=== PATIENT | male | born 1940 | race American Indian/Alaskan Native ===

== ENCOUNTER 2020-05-23 19:37 | Emergency (ER) | payer MEDICARE, OTHER ==
[~2020-05-23] VITALS: Ht 170.2 cm; Wt 63.5 kg
== END 2020-05-23 20:57 | disposition home or self-care (01) ==
LOC: ED 19:37
DX: I87.2 Venous insufficiency (chronic) (peripheral) (principal); Z87.891 Personal history of nicotine dependence
CPT/HCPCS: 80048; 83880; 99284

== ENCOUNTER 2021-03-25 12:48 | Inpatient (IN) | payer MEDICARE, OTHER ==
[~2021-03-25] VITALS: Ht 170.2 cm; Wt 65.0 kg
--- NOTE | 2021-03-26 13:34 | EKG ---
[facility] [address] [facility] [place], [place] [address] Signed Sinus tachycardia Left axis deviation T wave abnormality, consider anterior ischemia Abnormal ECG No previous ECGs available Confirmed by ALBERT MONTES DO ([id number]) on 03/26/2021 1:34:16 PM Electronically Signed By: ALBERT MONTES DO 03/26/21 1334 PATIENT NAME: SUSAN TRONCOSO Electrocardiogram DATE OF : 38 PHYSICIAN: ALBERT MONTES DO REPORT #: [id number] REPORT IS CONFIDENTIAL AND NOT TO BE RELEASED WITHOUT AUTHORIZATION
--- NOTE | 2021-04-06 21:03 | EKG ---
[facility] [address] [facility] [place], [place] [address] Signed Sinus tachycardia Left axis deviation Anterolateral infarct , age undetermined Abnormal ECG No previous ECGs available Confirmed by ALBERT MONTES DO ([id number]) on 04/06/2021 9:03:32 PM Electronically Signed By: ALBERT MONTES DO 04/06/212102 PATIENT NAME: SUSAN TRONCOSO Electrocardiogram DATE OF : 38 PHYSICIAN: ALBERT MONTES DO REPORT #: [id number] REPORT IS CONFIDENTIAL AND NOT TO BE RELEASED WITHOUT AUTHORIZATION
--- NOTE | 2021-04-08 18:55 | EKG ---
[facility] [address] [facility] [place] [address] Signed Sinus tachycardia Possible Lateral infarct (cited on or before 06-APR-2021) T wave abnormality, consider anterior ischemia Abnormal ECG When compared with ECG of 06-APR-2021 09:00, Questionable change in initial forces of Lateral leads ST no longer depressed in Anterior leads Confirmed by ALBERT MONTES DO ([id number]) on 04/08/2021 6:55:12 PM Electronically Signed By: ALBERT MONTES DO 04/08/21 1855 PATIENT NAME: SUSAN TRONCOSO Electrocardiogram DATE OF : 38 PHYSICIAN: ALBERT MONTES DO REPORT #: [id number] REPORT IS CONFIDENTIAL AND NOT TO BE RELEASED WITHOUT AUTHORIZATION
[2021-04-12] MEDS ORDERED: IPRAT-ALBUT 0.5-3 ML INH (19:18)
[2021-04-12] MEDS ORDERED: LEVOFLOXACIN750 MG PO (19:18)
[2021-04-12] MEDS ORDERED: ALBUTEROL2.5 MG/3 M INH (19:18)
[2021-04-12] MEDS ORDERED: ASPIRIN81 MG PO (19:20)
[2021-04-12] MEDS ORDERED: TYLENOL325 MG PO (19:20)
[2021-04-12] MEDS ORDERED: ENOXAPARIN40 MG/0.4 SUB-Q (19:20)
[2021-04-12] MEDS ORDERED: STIMULANT LAXA1 EACH PO (19:21)
[2021-04-12] MEDS ORDERED: HYDROXYZINE PAM25 MG PO (19:21)
[2021-04-12] MEDS ORDERED: HEALTHYLAX17 GM PO (19:21)
[2021-04-12] MEDS ORDERED: BENZONATATE100 MG PO (19:21)
[2021-04-12] MEDS ORDERED: PANTOPRAZOLE SO40 MG PO (19:22)
[2021-04-12] MEDS ORDERED: THERA TABLET400 MCG PO (19:22)
[2021-04-12] MEDS ORDERED: MELATONIN3 MG PO (19:23)
== END 2021-04-13 11:40 | DRG 177 ==
LOC: ED 12:48 → MS 18:01 → EDBD 18:01 → CCU 18:01 → MS 03-31 22:27
PROVIDERS: ADMIT Student in an Organized Health Care Education/Training Program; ATTEND Student in an Organized Health Care Education/Training Program
PROC: 8E0ZXY6 Isolation (ICD-10-PCS; principal; 2021-03-25)
PROC: 3E0DX3Z Introduction of Anti-inflammatory into Mouth and Pharynx, External Approach (ICD-10-PCS; 2021-03-25)
PROC: XW033E5 Introduction of Remdesivir Anti-infective into Peripheral Vein, Percutaneous Approach, New Technology Group 5 (ICD-10-PCS; 2021-03-25)
PROC: 5A0955A Assistance with Respiratory Ventilation, Greater than 96 Consecutive Hours, High Flow/Velocity Cannula (ICD-10-PCS; 2021-03-25)
PROC: XW0DXM6 Introduction of Baricitinib into Mouth and Pharynx, External Approach, New Technology Group 6 (ICD-10-PCS; 2021-03-26)
PROC: 3E0333Z Introduction of Anti-inflammatory into Peripheral Vein, Percutaneous Approach (ICD-10-PCS; 2021-03-26)
PROC: 5A09457 Assistance with Respiratory Ventilation, 24-96 Consecutive Hours, Continuous Positive Airway Pressure (ICD-10-PCS; 2021-03-30)
PROC: 5A09357 Assistance with Respiratory Ventilation, Less than 24 Consecutive Hours, Continuous Positive Airway Pressure (ICD-10-PCS; 2021-04-09)
DX: U07.1 COVID-19 (principal); J96.01 Acute respiratory failure with hypoxia; I21.A1 Myocardial infarction type 2; J12.82 Pneumonia due to coronavirus disease 2019; J47.9 Bronchiectasis, uncomplicated; F10.10 Alcohol abuse, uncomplicated; Z66 Do not resuscitate
CPT/HCPCS: 36415; 36600; 71045; 71260; 80048; 80053; 82803; 83735; 83880; 84100; 84484; 85025; 85379; 86140; 93005; 93010; 93306; 94640; 94660; 94667; 94668; 94760; 94762; 94799; 96374; 97110; 97162; 97530; 99285-25; A9270; C9803; J0248; J1100; J1650; J2060; J7050; J7121; J8540; Q0177; Q9967; U0003